=== PATIENT | male | born 1965 | race Caucasian/White ===

== ENCOUNTER 2022-07-28 01:36 | Observation (INO) | payer OTHER, SELFPAY ==
[2022-07-28] VITALS (14 sets, daily range): BP systolic 121–153; BP diastolic 71–94; PULSE 72–84; RESP 16–20; TEMP 36.6–37.6; O2SAT 96–98; BMI 28.6
--- NOTE | 2022-07-28 02:12 | CRLHL7_ITS ---
For Patients: As a result of the Cures Act, medical imaging exams and procedure reports are released immediately into your electronic medical record. You may view this report before your referring provider. If you have questions, please contact your health care provider. INDICATION: Shortness of breath, calf pain, chest pain. TECHNIQUE: Ultrasound venous duplex lower right extremity. Compression venous exam was performed using olivarez-scale, color Doppler, and spectral Doppler analysis. COMPARISON: None. FINDINGS: Deep veins: Sonographic imaging demonstrates the right common femoral, deep femoral, superficial femoral, and posterior tibial and the contralateral left common femoral veins to be fully compressible with normal color Doppler blood flow. There is nonocclusive thrombus in the popliteal vein becoming occlusive in 1 of the peroneal veins. Superficial veins: Greater saphenous vein is fully compressible. No popliteal cyst. IMPRESSION: Acute deep venous thrombosis. Nonocclusive thrombus in the popliteal vein with occlusive thrombus in 1 of the peroneal veins. Findings conveyed to Dr. Campbell at 4:30 a.m. on 07/28/2022. Dictated by Jasiel Blum MD @ 07/28/2022 4:33:14 AM (Electronically Signed)
--- NOTE | 2022-07-28 02:12 | CRLHL7_ITS ---
For Patients: As a result of the Century Cures Act, medical imaging exams and procedure reports are released immediately into your electronic medical record. You may view this report before your referring provider. If you have questions, please contact your health care provider. INDICATION: Left-sided chest pain, dyspnea COMPARISON: none TECHNIQUE: CT volumetric acquisition was performed of the thorax during intravenous infusion of 95 cc Isovue 370 nonionic intravenous contrast. Please note that all CT scans at this facility use dose modulation, iterative reconstruction, and/or weight-based dosing when appropriate to reduce radiation dose to as low as reasonably achievable. FINDINGS: Bilateral pulmonary emboli are present within the right middle lobe, right lower lobe and left lower lobe. Small left pleural effusion with adjacent atelectasis. Visualized thyroid normal. No adenopathy. The RV/LV ratio is 1.04. No reflux into the IVC. Upper abdomen normal. Ground-glass densities in the lingula. No fracture. IMPRESSION: Bilateral pulmonary emboli. Dr. Kathy Saleem discussed the findings with Dr. Campbell at 4:56am on 07/28/2022 Please note that all CT scans at this facility use dose modulation, iterative reconstruction, and/or weight-based dosing when appropriate to reduce radiation dose to as low as reasonably achievable. Dictated by Rai Guidry MD @ 07/29/2022 11:39:20 AM (Electronically Signed)
--- NOTE | 2022-07-28 02:14 | ED.GENADULT ---
HPI - General Adult General Time Seen by Provider: 02:15 Date Seen: 07/28/22 Chief complaint: Cough Stated complaint: Mild cough, pain lft side rib Time Seen by Provider: 07/28/22 02:06 Source: patient Mode of arrival: ambulatory Limitations: no limitations History of Present Illness HPI narrative: 57-year-old male who comes in with left-sided chest pain and shortness of breath. Patient started having a cough a couple weeks ago, today noted dyspnea with exertion and then this evening sharp left-sided chest pain worse with movement and breathing. Emergency department today but no other treatment. Worse with movement and breathing, no relieving factors. Pain is sharp, also some pain in left trapezius. No history of trauma Related Data Home Medications Medication Instructions Recorded Confirmed No Known Home Medications 07/28/22 07/28/22 Allergies Allergy/AdvReac Type Severity Reaction Status Date / Time No Known Drug Allergies Allergy Verified 07/28/22 03:32 Review of Systems Status of ROS: Reports: 10 or more systems reviewed and unremarkable except as noted in History and below PFSH PFSH Social History Smoking Status: Never smoker Do you use any of these nicotine containing products: None How often do you have a drink containing alcohol: monthly or less AUDIT-C Alcohol total score: 1 Non-prescribed substance use: denies use Exam Narrative: Exam Narrative: General: Well-developed and well-nourished, no acute distress Head: Atraumatic and normocephalic Eyes: Pupils are equal reactive, extraocular motions intact, conjunctiva clear ENT: External nose and ears are normal, posterior pharynx without erythema or exudate Neck: No midline cervical tenderness, full spontaneous range of motion the neck, trachea midline, no adenopathy Heart: Regular rate and rhythm no murmurs or thrills Lungs: Clear to auscultation bilaterally without wheezes or crackles, left lateral chest tenderness Abdomen: Soft, nontender, nondistended with active bowel sounds Musculoskeletal: No tenderness, deformity, or edema Neurologic: Awake, alert, and oriented x3, no gross focal neurologic deficits, cranial nerves intact as tested Psych: Mood and affect are appropriate Skin: No rashes Const: Vital Signs, click to edit/add: Vital Signs - 24 hr 07/28/22 01:52 Temperature 97.8 F Pulse Rate [Left P ulse Oximeter] 84 Respiratory Rate 16 Blood Pressure [Le ft Upper Arm] 150/94 H Pulse Oximetry 98 Oxygen Delivery Me thod Room Air Course Course Hospital Course: Patient seen and examined, are reviewed. Differential diagnosis not limited to hemothorax, pneumothorax, chest wall pain, pulmonary embolism, pneumonia. Patient presents with pleuritic left-sided pain along with cough, also had some right calf pain. On exam, vital is stable with no hypoxia. Appears uncomfortable. Toradol and normal saline ordered along with labs and CT PE protocol. Reevaluation(s) Reevaluation #1: Troponin is negative and BNP is normal. CT scan personally reviewed and interpreted by me demonstrates pulmonary infarction on the left with bilateral subsegmental pulmonary emboli, no evidence for right heart strain. Due to pulmonary infarction, will plan to admit the patient to [facility] for further evaluation and treatment. Time: 03:37 Reevaluation #2: Paged hospitalist, updated patient with diagnosis and plan. Time: 03:45 Reevaluation #3: Care discussed with about hospitalist who recommends oral anticoagulation and observation Time: 03:55 Vital Signs Vital signs: Initial Vital Signs Temperature 97.8 F 07/28/22 01:52 Temperature Source Temporal Artery Scan 07/28/22 01:52 Pulse Rate 84 07/28/22 01:52 Pulse Rhythm 07/28/22 01:52 Respiratory Rate 16 07/28/22 01:52 Blood Pressure 150/94 H 07/28/22 01:52 Blood Pressure Mean 112 07/28/22 01:52 Blood Pressure Position Sitting 07/28/22 01:52 Pulse Oximetry 98 07/28/22 01:52 Oxygen Delivery Method 07/28/22 01:52 Vital Signs Temperature 97.8 F 07/28/22 01:52 Pulse Rate 84 07/28/22 01:52 Respiratory Rate 16 07/28/22 01:52 Blood Pressure 150/94 H 07/28/22 01:52 Pulse Oximetry 98 07/28/22 01:52 Oxygen Delivery Method 07/28/22 01:52 Temperature 97.8 F 07/28/22 01:52 Pulse Rate 84 07/28/22 01:52 Respiratory Rate 16 07/28/22 01:52 Blood Pressure 150/94 H 07/28/22 01:52 Pulse Oximetry 98 07/28/22 01:52 Oxygen Delivery Method 07/28/22 01:52 Medical Decision Making Medical Records Medical records reviewed: Yes I reviewed the patient's medical records Lab Data Lab results reviewed: Yes I reviewed the patient's lab results Labs: Lab Results 07/28/22 07/28/22 07/28/22 Range/Units 02:12 02:24 02:24 WBC 10.60 (4.50-11.00) K/uL RBC 4.94 (4.30-5.90) m/uL Hgb 14.6 (13.5-17.5) gm/dL Hct 43.8 (37.0-53.0) % MCV 89 (80-100) fL MCH 30 (26-34) pg MCHC 33 (32-36) gm/dL RDW Coeff of Sven 12.3 (11.5-15.5) % Plt Count 248 (140-440) K/uL Neut % (Auto) 75.3 H (42.0-72.0) % Lymph % (Auto) 14.1 L (20-44) % [place] % (Auto) 9.1 (0.0-11.0) % Eos % (Auto) 0.8 (0.0-7.0) % Baso % (Auto) 0.3 (0.0-3.0) % Neut # (Auto) 8.00 H (1.7-7.0) K/uL Lymph # (Auto) 1.50 (0.90-2.90) K/uL [place] # (Auto) 1.00 H (0.00-0.90) K/UL Eos # (Auto) 0.09 (0.00-0.50) K/uL Baso # (Auto) 0.03 (0.00-0.30) K/uL Abs Immat Gran (auto) 0.04 (0.00-0.30) K/uL Sodium 136 (135-149) mmol/L Potassium 4.0 (3.6-5.1) mmol/L Chloride 100 (96-114) mmol/L Carbon Dioxide 27 (20-32) mmol/L BUN 19 (7-30) mg/dL Creatinine 1.3 (0.5-1.5) mg/dL Estimated Creat Clear 68.38 Estimated GFR 65 ml/min Glucose 121 H (60-115) mg/dL Calcium 9.7 (8.4-10.6) mg/dL NT-Pro-B Natriuret Pep 47 (0-125) PG/mL POC Troponin I 0.00 L (0.01-0.04) ng/ml Imaging Data CT scan - chest: Attestation: I have reviewed the pertinent imaging results. My impression: Bilateral subsegmental pulmonary embolism with pulmonary infarction on the left Venous US: Attestation: I have reviewed the pertinent imaging results. My impression: Occlusive and nonocclusive thrombus in the popliteal and peroneal Critical Care Time Critical Care Time Critical Care Time: Yes Attestation: The patient required my highest level preparedness to intervene emergently and I personally spent this critical care time directly and personally managing the patient. This critical care time included: Obtaining a history; Examining the patient; Pulse oximetry; Ordering and reviewing of studies; Arranging urgent treatment with development of a management plan; Evaluation of patients response to treatment; Frequent reassessment discussions with other providers. This critical care time was performed to assess and manage the high probability of imminent life-threatening deterioration that could result in multiorgan failure. It was exclusive of separate billable procedures and treating other patients and teaching time. Total Critical Care Time in Minutes: 80 Discharge Plan Discharge Clinical Impression: Pulmonary embolism and infarction, Deep vein thrombosis (DVT) of right lower extremity Patient Disposition: Admitted As Inpatient Condition: Stable
--- OUTSIDE RECORDS SUMMARY | 2022-07-28 02:27 | XMS_ITS | Clinical Summary ---
:1965 Author Organization [employer] [facility] [place] [address] Care Team Providers Name Role Phone Johana Busby Primary Care Provider Allergies No known active allergies Medications No known medications Active Problems Problem Noted Date Skin cancer 07/02/2022 Overview: 06/30/22: Right nasal ala; Basal cell car cinoma - needs Mohs [place]-Schlatter's disease of both knees 06/09/2022 Routine adult health maintenance 10/31/2017 Overview: Colonoscopy 10/2017 normal , repeat in 10 years Osteoarthritis of both hands 09/23/2016 Elevated serum creatinine 09/23/2016 High serum potassium level 09/23/2016 Mixed hyperlipidemia 06/13/2009 Encounters Date Type Specialty Care Team Description 07/02/2022 Telephone Wandy Luque Results MD Candy 06/30/2022 Office Visit Wandy Luque Derm Problem MD Candy 06/30/2022 Travel 06/09/2022 Office Visit Naeem Lee, Knee Inju ry (right- 2 weeks DO ago slowly impr oving.) 06/09/2022 Travel 05/31/2022 Hospital Encounter Johana Busby Mixed hy perlipidemia ROSEANN Weiner 05/31/2022 Travel 05/06/2022 Office Visit Johana Busby Physical (Has a spot on ROSEANN Weiner nose that bleed s when he wipes it with a towel and it hurts all th e time) 05/06/2022 Travel from Last 3 Months Immunizations Name Administration Dates Next Due AMB INFLUENZA, IIV4 (AGE=>6MOS) MDV 07/05/2017 (Flu Clinic Only) COVID-19 vaccine (Moderna 09/15/2021, 12/11/2020, 11/13/2020 100mcg/0.5mL) PF, MDV Hepatitis B, Unspecified 10/04/1993, 06/23/1993, 04/26/1993 Influenza A (H1N1), Inactivated 08/21/2009 Influenza, IIV3 (Age >=3 years) 07/14/2015, 06/17/2013, 06/18, 07/17/2010 Influenza, IIV4 08/08/2021, 07/26/2019, 07/13/2018, 07/29/2016, 07/18/2014, 07/23/2013 Influenza, IIV4 (=>6mos) MDV 07/05/2020, 07/26/2016, 015 MMR 04/23/1993, 05/03/1985 Meningococcal Vaccine 05/03/1992, 05/03/1985 Rabies Vaccine 06/23/1993, 05/03/1993, 04/26/1993 Td (Age >=7 Years) 10/17/2002 Tdap 05/06/2022, 06/07/2012 Zoster (Shingrix-RZV, recombinant) 03/21/2019, 01/24/2019 Family History Medical History Relation Name Comments Good Health Brother 2 Good Health Father has rosacea, Ray nauds Other Maternal Aunt [place]-Candido disease Diabetes Maternal Grandfather Heart Disease Maternal Grandfather Heart Disease Maternal Grandmother CHF, a t 89 Arthritis Mother rheumatoid Cancer Paternal Grandfather Cancer Paternal Grandmother bone Good Health Sister 3 Relation Name Status Comments Brother 1 Alive Brother 2 Father Alive Maternal Aunt Maternal Grandfather Maternal Grandmother Mother Alive Paternal Grandfather Paternal Grandmother Sister 1 Alive Sister 2 Alive Sister 3 Social History Tobacco Use Types Packs/Day Years Used Date Never Smoker Smokeless Tobacco: Never Used Tobacco Cessation: Counseling Given: Yes Alcohol Use Standard Drinks/Week Comments Yes 0 (1 standard drink = 0.6 oz pure alcoho l) once a month Sex Assigned at Date Recorded Not on file COVID-19 Exposure Response Date Recorded In the last 10 days, have you been in contact with No / Unsu re 06/30/2022 8:02 AM CDT someone who was confirmed or suspected to have Coronavirus/COVID-19? 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 Respiratory Rate - - Oxygen Saturation 97% 06/09/2022 7:29 AM CDT Inhaled Oxygen Concentration - - Weight 93.7 kg (206 lb 9.6 oz) 06/09/2022 7:29 AM CDT Height 179.8 cm (5' 10.79) 05/06/2022 1:33 PM CDT Body Mass Index 28.99 05/06/2022 1:33 PM CDT Plan of Treatment Upcoming Encounters Date Type Specialty Care Team Description 09/16/2022 Office Visit Ever Agee MD [address] [place], [place] [address] (Wo rk) Health Maintenance Due Date Last Done Comments COVID-19 vaccine series (5 - 04/19/2022 02/22/2022, 021, Booster for Moderna series) 12/11/2020, Addition al history exists Influenza for age 50-64 06/17/2022 08/08/2021, 07/05/2020, 07/26/2019, Additional history exists BMI (ht and wt on same day) for 05/06/2023 05/06/2022, 04/17, age 18+ 01/24/2019, Additional history exists Depression screening for age 12+ 05/06/2023 05/06/2022, 07/2019, 09/20/2017, Additional history exists Lipids for age 45-75 05/06/2027 05/06/2022, 09/20/2017, 04/06/2016, Additional history exists Colonoscopy through age 75 10/31/2027 10/31/2017, 8, 10/31/2017 (Completed outside of [facility]) Tetanus booster 05/06/2032 05/06/2022, 06/07/2012, 10/17/2002 Zoster (shingles) series for age Completed 03/21/2019, 07/2019 50+ Hepatitis C screening for age Completed 05/06/2022 18-79 Tdap Completed 05/06/2022, 06/07/2012 Procedures Procedure Name Priority Date/Time Associated Diagnosis Comme nts PATH TISSUE EXAM Routine 06/30/2022 8:40 AM Neoplasm of uncert ain Results for this CDT behavior procedure are i n the results section. CT CARDIAC CALCIUM Routine 05/31/2022 8:04 AM Mixed hyperlipid emia Results for this SCORE ONLY WO CDT procedure are in SINGLE READ the results section. COMP METABOLIC Routine 05/06/2022 2:18 PM Hyperlipidemia, Resu lts for this PANEL CDT unspecified procedure are i n hyperlipidemia type the resu lts section. HEMOGLOBIN A1C Routine 05/06/2022 2:18 PM Screening for diabet es Results for this SCREENING CDT mellitus (DM) procedure are in the results section. ANTI HCV Routine 05/06/2022 2:18 PM Need for hepatitis C R esults for this CDT screening test procedure are in the results section. LIPID PANEL W Routine 05/06/2022 2:18 PM Hyperlipidemia, Resul ts for this REFLEX MEASURED LDL CDT unspecified procedur e are in hyperlipidemia type the resu lts section. from Last 3 Months Results PATH TISSUE EXAM (06/30/2022 8:40 AM CDT) Component Value Ref Test Analysis Performed At [facility] gist Range Method Time Signature Case Report Pathology Report ?Case: [id number] ? 07/02/2022 [facility] Authorizing Provider: ??Jovany freedman, Wandy Gupta, ??Collected: ? 06/30/2022 0840 ? 8:45 AM CDT LABORAT ORY-CE ? MD ? NTRAL Ordering Location: ? [facility] ? Received: ?06/30/2022 0857 ? LABOR ATORY ? Clinic ? Pathologist: ? Maria Esther Delatorre MD ? Specimen: ?Nose, right a la ? Final A) SKIN, RIGHT NASAL ALA, BIOPSY: 2021 [facility] Electronically Diagnosis 1. Basal cell carcinoma, nodular type: 8 :45 AM CDT LABORATORY-CE signed by ?? a. Perineural invasion: Absent NTRAL Maria Esther Delatorre ?? b. Margins: Positive LABOR CARLOS Wiley MD on 07/02/2022 at 8:45 AM Clinical Rule out 07/02/2022 [facility] Information atypia 8:45 AM CDT LABORATORY-CE NTRAL LABORATORY Gross A) Received in formalin, lab eled with the patient's name and right ala, is a 0.4 x 0.3 cm skin biopsy. There is a 0.3 x 0.2 x 0.1 cm raised davis lesion. The specimen is inked green, bisected and entirely submitted in one cassette. 07/02/2022 [facility] Description 8:45 AM CDT LABORATORY-CE Dk Sousa 06/30/2022 4:02 PM NTRAL LABORATORY Microscopic The final 07/02/2022 [facility] Description diagnosis is 8:45 AM CDT LABORATORY-CE based on NTRAL microscopic LABORATORY examination of appropriate sections of all specimens. Additional 07/02/2022 [facility] Information Interpreted at [facility], Central Laboratory - [address], [place] [address] 8:45 AM CDT LABORATORY-CE NTRAL LABORATORY Specimen Anatomical Collection Method Collection Time Receive d Time (Source) Location / / Volume Laterality Other SPECIMEN FROM NOSE Non-Blood / 06/30/2022 8:40 AM 8:57 / Unknown Unknown CDT AM CDT Wandy Luque MD PATHOLOGY/CYTOLOGY Performing Organization Address City/State/ZIP Code Phon e Number [facility] [address] [place] [address] LABORATORY-CENTRAL [address] CARDIAC CALCIUM SCORE ONLY WO SINGLE READ (05/31/2022 8:04 AM CDT) Anatomical Region Laterality Modality Computed Tomography Specimen (Source) Anatomical Location Collection Method / Collectio n Time Received Time / Laterality Volume Impressions 05/31/2022 12:04 PM CDT ??The coronary artery calcium score of 0.0 is consistent with no identifiable calcification. ??Recomme nd appropriate risk management. ?? Please note that all CT scans at this [facility] use dose modulation, iterative reconstruction and/or weight-b ased dosing when appropriate to reduce radiation dose to as low as reaso nably achievable. ?? MONET CALVILLO M.D. [email or web address] NERIS/kely Narrative 05/31/2022 12:04 PM CDT For Patients: As a result of the Cures Act, medical imaging exams and procedure reports are released immediately into your electronic medical record. ??You may view this repo rt before your referring provider. ?? If you have questions, please contact [facility] care provider. CT CARDIAC CALCIUM SCORING, 05/31/2022 PATIENT HISTORY: ??Mixed hyperlipidemia. ?? REPORT: ??High-resolution, ECG-synchroni zed computed tomography of the heart with attention to the coronary art eries was performed using Siemens HeartView CT. Coronary calcification lauren lyzed using Siemens calcium scoring software. These are the results of the evaluation: Artery Number of Lesions Volume Equiv. M ass Calcium Score LM 0 0.0 0.00 0.0 LAD 0 0.0 0.00 0.0 CX 0 0.0 0.00 0.0 RCA 0 0.0 0.00 0.0 TOTAL 0 0.0 0.00 0.0 Threshold: ??130HU ??(102.7 mg/cm3 CaHA) *) Calibration factor: 0.790 mg/(HUcm3) CaHA The Computed Tomography of the coronary arteries detected no coronary calcifications. ??According to the curre nt state of knowledge (O'Maria E, Circulation 2000; 102:126) a coronary at herosclerosis including unstable plaque is very unlikely when no calcific ations are present. ??A significant luminal obstructive disease is also very unlikely. ??Most patients without coronary calcifications have angiographi tima normal coronary arteries. ?? There is only a low risk of a cardiac ev ent in the next 2 to 5 years. No Identifiable Calcification Minimal Identifiable Calci fication Mild Calcification Moderate Calcification Significant Calci fication 0 1-10 11-100 101-400 401 and above (Following [facility] Clin Proc. 1999;74(3):24 3-252) COMMENT: ??Heart size normal. ??Visible lung fox are clear. ?? Johana WHITFIELD CT HEMOGLOBIN A1C SCREENING (05/06/2022 2:18 PM CDT) athologist Signature HEMOGLOBIN A1C 5.3 <=6.4 % 05/06/2022 [facility] SCREENING 9:59 PM CDT LABORATORY-[facility] LABORATORY Specimen Anatomical Collection Method / Collection Time Recei yadiel Time (Source) Location / Volume Laterality Blood BLOOD SPECIMEN / Venipuncture / 05/06/2022 2:18 2021 2:19 Unknown Unknown PM CDT PM CDT Narrative [facility] LABORATORY-CENTRAL LABORAT ORY - 05/06/2022 9:59 PM CDT ? (<5.7%) ?Normal ? (5.7% to 6.4%) ? Indicates pr ediabetes ? (>=6.5%) ? Confirms diabetes Falsely low levels may be seen with: Recent Transfusion, Recent Significant B lood Loss, Hemolytic Diseases, or Falsely elevated levels may be seen with : Untreated Anemias, Splenectomy Johana WHITFIELD CHEMISTRY Performing Organization Address City/State/ZIP Code Phon e Number [facility] [address] [place] [address] LABORATORY-CENTRAL 2000 LABORATORY (ABNORMAL) LIPID PANEL W REFLEX MEASURED LDL (05/06/2022 2:18 PM CDT) [facility] Method Time Signature CHOLESTEROL,TOTAL 270 (H) 100 - 199 05/07/2022 [facility] mg/dL 1:56 AM CDT LABORATORY-[facility] TRAL LABORATORY TRIGLYCERIDES 112 <150 05/07/2022 [facility] mg/dL 1:56 AM CDT LABORATORY-[facility] TRAL LABORATORY HDL CHOLESTEROL 43 >40 mg/dL 05/07/2022 [facility] 1:56 AM CDT LABORATORY-[facility] TRAL LABORATORY NON-HDL 227 (H) <145 05/07/2022 [facility] CHOLE[facility]OL mg/dl 1:56 AM CDT LABORATORY-[facility] TRAL LABORATORY CHOL/HDL RATIO 6.28 (H) <4.50 05/07/2022 [facility] 1:56 AM CDT LABORATORY-[facility] TRAL LABORATORY LDL CHOLESTEROL 205 (H) <=130 05/07/2022 [facility] mg/dL 1:56 AM CDT LABORATORY-[facility] TRAL LABORATORY VLDL CHOLESTEROL 22 <=30 05/07/2022 [facility] mg/dL 1:56 AM CDT LABORATORY-[facility] TRAL LABORATORY PROVIDER ORDERED RANDOM 05/07/2022 [facility] STATUS 1:56 AM CDT LABORATORY-[facility] TRAL LABORATORY Specimen Anatomical Collection Method / Collection Time Recei yadiel Time (Source) Location / Volume Laterality Blood BLOOD SPECIMEN / Venipuncture / 05/06/2022 2:18 2021 2:19 Unknown Unknown PM CDT PM CDT Johana WHITFIELD CHEMISTRY Performing Organization Address [facility] Phon e Number [facility] [address] [place] [address] LABORATORY-CENTRAL 1999 LABORATORY ANTI HCV (05/06/2022 2:18 PM CDT) [facility] Method Time Signature HEPATITIS C Non-Reacti Non-Reacti 05/07/2022 [facility] ANTIBODY ve ve 3:45 AM CDT LABORATORY-[facility] TRAL LABORATORY Comment: Antibodies to HCV not detected; does not exclude the possibility of exposure to HCV. Specimen Anatomical Collection Method / Collection Time Recei yadiel Time (Source) Location / Volume Laterality Blood BLOOD SPECIMEN / Venipuncture / 05/06/2022 2:18 2021 2:19 Unknown Unknown PM CDT PM CDT Johana WHITFIELD SEND OUTS Performing Organization Address [facility] Phon e Number [facility] [address] [place] [address] LABORATORY-CENTRAL 1999 LABORATORY (ABNORMAL) COMP METABOLIC PANEL (05/06/2022 2:18 PM CDT) [facility] Method Time Signature SODIUM 139 135 - 145 05/07/2022 [facility] mmol/L 1:56 AM CDT LABORATORY-[facility] TRAL LABORATORY POTASSIUM 4.4 3.5 - 5.0 05/07/2022 [facility] mmol/L 1:56 AM CDT LABORATORY-[facility] TRAL LABORATORY CHLORIDE 101 98 - 110 05/07/2022 [facility] mmol/L 1:56 AM CDT LABORATORY-[facility] TRAL LABORATORY CO2,TOTAL 25 21 - 31 05/07/2022 [facility] mmol/L 1:56 AM CDT LABORATORY-[facility] TRAL LABORATORY ANION GAP 13 5 - 18 05/07/2022 [facility] 1:56 AM CDT LABORATORY-[facility] TRAL LABORATORY GLUCOSE 82 65 - 100 05/07/2022 [facility] mg/dL 1:56 AM CDT LABORATORY-[facility] TRAL LABORATORY CALCIUM 9.9 8.5 - 05/07/2022 [facility] 10.5 1:56 AM CDT LABORATORY-[facility] mg/dL TRAL LABORATORY BUN 15 8 - 25 05/07/2022 [facility] mg/dL 1:56 AM CDT LABORATORY-[facility] TRAL LABORATORY CREATININE 1.54 (H) 0.72 - 05/07/2022 [facility] 1.25 1:56 AM CDT LABORATORY-[facility] mg/dL TRAL LABORATORY BUN/CREAT RATIO 10 10 - 20 05/07/2022 [facility] 1:56 AM CDT LABORATORY-[facility] TRAL LABORATORY ALBUMIN 4.8 3.5 - 5.2 05/07/2022 [facility] g/dL 1:56 AM CDT LABORATORY-[facility] TRAL LABORATORY PROTEIN,TOTAL 7.2 6.0 - 8.0 05/07/2022 [facility] g/dL 1:56 AM CDT LABORATORY-[facility] TRAL LABORATORY GLOBULIN 2.4 2.0 - 3.7 05/07/2022 [facility] g/dL 1:56 AM CDT LABORATORY-[facility] TRAL LABORATORY A/G RATIO 2.0 1.0 - 2.0 05/07/2022 [facility] 1:56 AM CDT LABORATORY-[facility] TRAL LABORATORY BILIRUBIN,TOTAL 1.2 0.2 - 1.2 05/07/2022 [facility] mg/dL 1:56 AM CDT LABORATORY-[facility] TRAL LABORATORY ALK PHOSPHATASE 64 50 - 136 05/07/2022 [facility] IU/L 1:56 AM CDT LABORATORY-[facility] TRAL LABORATORY ALT (SGPT) 36 8 - 45 05/07/2022 [facility] IU/L 1:56 AM CDT LABORATORY-[facility] TRAL LABORATORY AST (SGOT) 28 2 - 40 05/07/2022 [facility] IU/L 1:56 AM CDT LABORATORY-[facility] TRAL LABORATORY eGFR 53 (L) >90 05/07/2022 [facility] mL/min/1. 1:56 AM CDT LABORATORY-ALMA 73m2 TRAL LABORATORY Comment: As of 2021, eGFR is calcu lated by the CKD-EPI creatinine equation without race adjustment. eGFR can be inf luenced by muscle mass, exercise, and diet. The reported eGFR is an estimation only and is only applicable if the renal function is stable. Specimen Anatomical Collection Method / Collection Time Recei yadiel Time (Source) Location / Volume Laterality Blood BLOOD SPECIMEN / Venipuncture / 05/06/2022 2:18 2021 2:19 Unknown Unknown PM CDT PM CDT Johana WHITFIELD CHEMISTRY Performing Organization Address City/State/ZIP Code Phon e Number [facility] [address] [place] [address] LABORATORY-CENTRAL 2000 LABORATORY from Last 3 Months Insurance Payer Benefit Plan / Subscriber ID Effective Dates Phone Addre ss Type Group MEDICA MEDICA CHOICE [id number] 2021-Present [address] [address] [place] [address] (Home) [place] [phone] [place], [place] (Work) [address] Care Teams Vascular Technologist Relationship Specialty Start Date End Date Johana Busby PA PCP - General 09/02/07 [address] [place], [place] [id number]
[2022-07-28] MEDS: KETOROLAC 15 MG/ML inj IVP (02:35)
[2022-07-28] MEDS: 0.9 % SODIUM CHLORIDE 1000 ml 1,000 ML IV (02:35)
[2022-07-28 02:43] LABS: Basophils Absolute Auto 0.03 K/uL (0.00-0.30); Basophils Percent Auto 0.3 % (0.0-3.0); Eosinophils Absolute Auto 0.09 K/uL (0.00-0.50); Eosinophils Percent Auto 0.8 % (0.0-7.0); Hematocrit 43.8 % (37.0-53.0); Hemoglobin* 14.6 gm/dL (13.5-17.5); Immature Granulocytes Abs Auto 0.04 K/uL (0.00-0.30); Lymphocytes Percent Auto 14.1 % (20-44); Mean Corpuscular HGB Conc 33 gm/dL (32-36); Mean Corpuscular Hemoglobin 30 pg (26-34); Mean Corpuscular Volume 89 fL (80-100); Monocytes Percent Auto 9.1 % (0.0-11.0); Neutrophils Percent Auto 75.3 % (42.0-72.0); Platelet Count* 248 K/uL (140-440); RDW Coefficient of Variation % 12.3 % (11.5-15.5); Red Blood Count 4.94 m/uL (4.30-5.90)
[2022-07-28 02:44] LABS: Slide Review Reflex No
[2022-07-28 02:55] LABS: Chloride* 100 mmol/L (96-114); Sodium* 136 mmol/L (135-149)
[2022-07-28 02:58] LABS: Blood Urea Nitrogen* 19 mg/dL (7-30); Carbon Dioxide* 27 mmol/L (20-32); Creatinine* 1.3 mg/dL (0.5-1.5); Est. Creatinine Clearance* 68.38; Estimated Glomerular Filt Rate 65 ml/min
[2022-07-28 02:59] LABS: Calcium* 9.7 mg/dL (8.4-10.6); Glucose* 121 mg/dL (60-115)
[2022-07-28 03:08] LABS: NT Pro B Type NatriureticPept* 47 PG/mL (0-125)
[2022-07-28 04:00] LABS: Prothrombin Time 13.6 Seconds
[2022-07-28 04:01] LABS: Partial Thromboplastin Time* 32 Seconds (23-33)
[2022-07-28] MEDS: RIVAROXABAN 10 MG TABLET 15 MG PO ×3 (04:13→20:24)
[2022-07-28 04:33] LABS: PCR FLU A Negative PCR FLU A (Negative); PCR FLU B Negative PCR FLU B (Negative)
[2022-07-28 04:36] LABS: SARS PCR* Negative SARS-CoV-2 (Negative)
--- NOTE | 2022-07-28 05:02 | PM.IMCN1 ---
Date of Consult Consult date: 07/28/22 Primary Care Provider: ROSEANN Delong Consult Narrative Narrative: Mahesh Boone is a 57 year old male [facility] Social History Highest level of school completed/degree received: Doctoral degree Smoking Status: Never smoker Do you use any of these nicotine containing products: None How often do you have a drink containing alcohol: monthly or less AUDIT-C Alcohol total score: 1 Non-prescribed substance use: denies use Caffeine: No service: Yes Meds Home Medications and Allergies Home Medications Medication Instructions Recorded Confirmed Type No Known Home Medications 07/28/22 07/28/22 History Allergies Allergy/AdvReac Type Severity Reaction Status Date / Time No Known Drug Allergies Allergy Verified 07/28/22 03:32 Exam Const: Vital Signs, click to edit/add: Vital Signs - 24 hr 07/28/22 01:52 07/28/22 04:16 07/28/22 03:00 Temperature 97.8 F Pulse Rate [Left P ulse Oximeter] 84 76 Respiratory Rate 16 16 Blood Pressure [Le ft Upper Arm] 150/94 H 135/77 Pulse Oximetry 98 98 97 Oxygen Delivery Me thod Room Air Room Air 07/28/22 04:00 07/28/22 03:45 07/28/22 04:30 Temperature Pulse Rate [Left P ulse Oximeter] 74 78 74 Respiratory Rate 16 16 16 Blood Pressure [Le ft Upper Arm] 125/80 122/89 129/83 Pulse Oximetry 98 98 97 Oxygen Delivery Me thod Room Air Room Air Room Air Labs Labs: Short CBC 07/28/22 Range/Units 02:24 WBC 10.60 (4.50-11.00) K/uL Hgb 14.6 (13.5-17.5) gm/dL Hct 43.8 (37.0-53.0) % Plt Count 248 (140-440) K/uL BMP 07/28/22 02:24 Sodium 136 Potassium 4.0 Chloride 100 Carbon Dioxide 27 BUN 19 Creatinine 1.3 Glucose 121 H Calcium 9.7 Assessment and Plan Assessment and plan (1) Pulmonary embolism and infarction: Status: Acute Plan [facility] Hospitalist CONSULTATION NOTE: Reason for consult: Pulmonary embolism HPI: Patient is a pleasant 57-year-old male who presents with pleuritic chest pain and shortness of breath that is been going on for the last several days. He also notes that he had some right leg pain 2 days ago which has gotten better. He did notice a bit of swelling of his leg as well. I did not have any headache or lightheadedness. He denies abdominal pain, nausea, vomiting, or diarrhea. He has not had any associated fevers or chills. In the ER he had his CT scan showing pulmonary embolism as well as a DVT of his right lower extremity. He is started on rivaroxaban and placed in observation. Patient is a non-smoker. He drinks alcohol around once a month. Patient is full code Assessment and Plan: 1. Pulmonary embolism [Patient is a pleasant 57-year-old male with pulmonary embolism. His pulmonary embolism seems to be unprovoked as he does not have any recent inciting events. Hypercoagulable work-up could be considered, though he has family history of clotting disorder and has never had a prior blood clot. He could just be treated with anticoagulation and if he has a second thromboembolic event hypercoagulable work-up could be initiated at that point. Regardless the need to be on anticoagulation for at least 3 months if not 6 months and trialed off at that point. Patient does not have any home medications to continue. Patient is a full code. Thank you for including Krishna Merino in the patients care. This service is available for further assistance as requested by your care team by calling [phone].
--- NOTE | 2022-07-28 06:40 | PC.NURSE ---
End of Shift Note: Patient was admitted around 5 am. He ambulated up to the unit from the ER. No shortness of breath noted. His arrived shortly after his arrival to the unit. His admission was done all questions have been answered. Left room to grab a couple of forms and patient was settled in and had the lights off in his room. Left him to sleep will get the few items left to complete when he awakens as he was up most of the night. He drove himself to the ER and then texted his
[2022-07-28 08:33] LABS: ABG PCO2 35 mmHG (35-45); Base Excess ABG 2.4 mmol/L (-3.0-3.0); HCO3 ABG 26 mmol/L (21-28); Oxygen Saturation ABG 97 % (92-100); PO2 ABG 77.5 mmHG (80-105); TCO2 ABG 22 mmol/l (21-30); pH ABG 7.48 (7.35-7.45)
--- NOTE | 2022-07-28 09:06 | PM.IMHP1 ---
Hospitalist- H&P: HPI History of Present Illness Date Seen: 07/28/22 Chief complaint: Mild cough, pain lft side rib Narrative: Mahesh Boone is a 57 year old male who presented to the emergency room yesterday for concerns of blood clots. He notes that about 2 weeks ago, he began having intermittent cough, no hemoptysis. Noted calf pain on the right approximately 5 days ago. He started taking magnesium for cramping which was ineffective. Over the past 48 hours, noted L-sided chest pain, worsening dyspnea while active (biking, working around the house), and intermittent left-sided chest pain laterally with deep breaths. Given constellation of findings, he presented to the emergency room, worried about a blood clot. He had never had a blood clot previously, no recent travel, no known malignancy. No recent COVID infection. No new supplements (besides magnesium, see below). He is unaware of any family history of blood clots. ER course and findings: - right-sided DVT - bilateral pulmonary emboli, noted in the segmental and subsegmental left upper lobe and left lower lobe, distal right main pulmonary artery and extension into the set mental and subsegmental right lower lobe pulmonary arteries with concern for right heart strain. There is also patchy opacity in the lingula noted. - started on Xarelto and admitted to the hospital for monitoring - no acute/concerning findings on EKG, negative point of care troponin Mahesh is generally healthy, takes no daily prescription medications. Had Mohs surgery five days ago (the day after he has noted having calf pain) for basal cell carcinoma on his nose. Recently diagnosed with high cholesterol, but had a reassuring coronary artery calcium score. History of mild renal insufficiency (Cr 1.58), seeing Nephrology in September. He is up-to-date on colon cancer screening (normal colonoscopy at age 52), has deferred routine PSAs. Has mild symptoms of BPH. Patient is a PhD psychologist, works locally. Lives with Kathy (medical decision maker if needed) and 2 teenage sons. He has received 5 COVID vaccines. Requests Full Code status. Review of Systems Status of ROS: Reports: 10 or more systems reviewed and unremarkable except as noted in History and below Narrative: Patient has noted difficulty sleeping over the past few evenings; he denies PND orthopnea, just has a difficult time falling asleep. PFSH PFSH Medical History (Updated 07/28/22 @ 12:25 by Olamide Ayala MD) Basal cell carcinoma Hyperlipidemia Surgical History (Updated 07/28/22 @ 09:27 by Olamide Ayala MD) H/O hernia repair Social History Highest level of school completed/degree received: Doctoral degree Smoking Status: Never smoker Do you use any of these nicotine containing products: None How often do you have a drink containing alcohol: monthly or less AUDIT-C Alcohol total score: 1 Non-prescribed substance use: denies use Caffeine: No service: Yes Meds Home Medications and Allergies Home Medications Medication Instructions Recorded Confirmed Type calcium carbonate 500 mg calcium 500 mg PO DAILY 07/28/22 07/28/22 History (1,250 mg) tablet (Oyster Shell Calcium) cholecalciferol (vitamin D3) 25 1,000 unit PO DAILY 07/28/22 07/28/22 History mcg (1,000 unit) tablet (Vitamin D3) multivitamin (Daily Multi-Vitamin 1 tab PO DAILY 07/28/22 07/28/22 History tablet) Allergies Allergy/AdvReac Type Severity Reaction Status Date / Time No Known Drug Allergies Allergy Verified 07/28/22 03:32 Exam Narrative: Exam Narrative: GEN: Alert and oriented, speaking in full sentences, resting comfortably in bed HEENT: Normal external ears, EOMIs bilaterally, no scleral icterus CV: RRR, No concerning murmurs, rubs, or gallops R: LCTA bilaterally without concerning wheezing. Mild rhonchi left base, air movement adequate Ext: wwp, no concerning edema Skin: Healing skin lesion on nose from recent Mohs surgery, no concerning skin lesions or rashes on exposed skin Neuro: Nonfocal Psych: Appropriate Const: Vital Signs, click to edit/add: Vital Signs - 24 hr 07/28/22 01:52 07/28/22 04:16 07/28/22 03:00 Temperature 97.8 F Pulse Rate [Left P ulse Oximeter] 84 76 Pulse Rate [Right Radial] Respiratory Rate 16 16 Blood Pressure [Le ft Upper Arm] 150/94 H 135/77 Blood Pressure [Ri ght Arm] Pulse Oximetry 98 98 97 Oxygen Delivery Me thod Room Air Room Air 07/28/22 04:00 07/28/22 03:45 07/28/22 04:30 Temperature Pulse Rate [Left P ulse Oximeter] 74 78 74 Pulse Rate [Right Radial] Respiratory Rate 16 16 16 Blood Pressure [Le ft Upper Arm] 125/80 122/89 129/83 Blood Pressure [Ri ght Arm] Pulse Oximetry 98 98 97 Oxygen Delivery Me thod Room Air Room Air Room Air 07/28/22 05:25 07/28/22 05:33 Temperature 98.6 F Pulse Rate [Left P ulse Oximeter] Pulse Rate [Right Radial] 72 Respiratory Rate 20 20 Blood Pressure [Le ft Upper Arm] Blood Pressure [Ri ght Arm] 153/87 H Pulse Oximetry 96 96 Oxygen Delivery Me thod Room Air Room Air Hospitalist - H&P: Result Labs Labs: Short CBC 07/28/22 Range/Units 02:24 WBC 10.60 (4.50-11.00) K/uL Hgb 14.6 (13.5-17.5) gm/dL Hct 43.8 (37.0-53.0) % Plt Count 248 (140-440) K/uL BMP 07/28/22 02:24 Sodium 136 Potassium 4.0 Chloride 100 Carbon Dioxide 27 BUN 19 Creatinine 1.3 Glucose 121 H Calcium 9.7 ECG Attestation: I personally reviewed and interpreted this ECG as follows: ECG interpretation date: 07/28/22 ECG interpretation time: 10:30 Interpretation: Normal sinus rhythm, normal PA interval, no concerning ST findings Assessment and Plan Assessment and plan (1) Pulmonary embolism and infarction: Problem comment: Started on Xarelto 07/28/22 Status: Acute Assessment and Plan: Continue Xarelto. TTE today to further assess right heart strain. Monitor over the next 24 hours with telemetry and nocturnal oximetry to ensure no hypoxia. Will need at least 6 months of anticoagulation, can discuss hematology follow-up with PCP as an outpatient. (2) Deep vein thrombosis (DVT) of right lower extremity: Status: Acute Plan - per above - Xarelto for prophylaxis - likely home with tomorrow
[2022-07-28 11:13] LABS: Troponin I* < 0.01 ng/mL (0.01-0.04)
--- NOTE | 2022-07-28 22:26 | PC.NURSE ---
End of Shift: Patient pleasant and cooperative. O2 sats greater than 90% on room air. Tele showing NSR. Patient had one brief episode of pain but has denied pain the reminder of the shift. Up independently in room. Tolerating regular diet with no nausea.
[2022-07-29 00:30] VITALS: BP 123/69; PULSE 73; RESP 16; TEMP 37.4; O2SAT 95
[2022-07-29 05:05] VITALS: BP 124/82; PULSE 82; RESP 16; TEMP 37.1; O2SAT 94
[2022-07-29 05:18] VITALS: PULSE 62
--- NOTE | 2022-07-29 05:30 | PC.NURSE ---
Shift note: The pt has been very pleasant and cooperative. Denied chest pain and reported mild short of breath with exertion. The pt has been in RA with Spo2 in the 90s. He denied calf pain and other distress throughout the shift.
[2022-07-29 07:24] LABS: Basophils Absolute Auto 0.05 K/uL (0.00-0.30); Basophils Percent Auto 0.5 % (0.0-3.0); Eosinophils Absolute Auto 0.12 K/uL (0.00-0.50); Eosinophils Percent Auto 1.2 % (0.0-7.0); Hematocrit 42.4 % (37.0-53.0); Hemoglobin* 14.1 gm/dL (13.5-17.5); Immature Granulocytes Abs Auto 0.04 K/uL (0.00-0.30); Lymphocytes Percent Auto 14.3 % (20-44); Mean Corpuscular HGB Conc 33 gm/dL (32-36); Mean Corpuscular Hemoglobin 30 pg (26-34); Mean Corpuscular Volume 90 fL (80-100); Monocytes Percent Auto 11.3 % (0.0-11.0); Neutrophils Percent Auto 72.3 % (42.0-72.0); Platelet Count* 239 K/uL (140-440); RDW Coefficient of Variation % 12.3 % (11.5-15.5); Red Blood Count 4.74 m/uL (4.30-5.90); White Blood Count* 10.19 K/uL (4.50-11.00)
[2022-07-29 07:30] VITALS: BP 144/89; PULSE 68; PULSE 70; RESP 16; TEMP 36.8; O2SAT 94
[2022-07-29 07:31] LABS: Slide Review Reflex No
[2022-07-29 07:32] LABS: Albumin* 4.3 g/dL (3.3-5.0); Chloride* 103 mmol/L (96-114)
[2022-07-29 07:33] LABS: Potassium* 5.2 mmol/L (3.6-5.1); Sodium* 136 mmol/L (135-149)
[2022-07-29 07:35] LABS: Alkaline Phosphatase* 93 U/L (40-150); Aspartate Amino Transferase* 21 U/L (12-35); Blood Urea Nitrogen* 18 mg/dL (7-30); Carbon Dioxide* 28 mmol/L (20-32); Creatinine* 1.4 mg/dL (0.5-1.5); Estimated Glomerular Filt Rate 59 ml/min; Total Protein* 7.2 g/dL (6.0-8.3)
[2022-07-29 07:36] LABS: Alanine Aminotransferase* 29 U/L (4-50); Calcium* 9.6 mg/dL (8.4-10.6); Glucose* 106 mg/dL (60-115)
[2022-07-29 07:50] LABS: Troponin I* < 0.01 ng/mL (0.01-0.04)
--- NOTE | 2022-07-29 08:26 | P.DS_ITS ---
DS: Providers Provider Date Seen: 07/29/22 Date of admission: 07/28/22 04:42 Primary care physician: ROSEANN Delong Admitting Clinician: Boni Keyes MD Attending Physician on discharge: Olamide Ayala MD Date of Discharge: 07/29/22 DS: Diagnosis Discharge Diagnosis (1) Deep vein thrombosis (DVT) of right lower extremity: Status: Acute (2) Pulmonary embolism and infarction: Status: Acute Problem details: Started on Xarelto 07/28/22 DS: Summary Hospital Course Hospital Course: 57-year-old male, presented to the emergency room with right calf pain, cough, and left-sided chest pain. Patient was diagnosed with bilateral PEs and right lower extremity DVT, unprovoked. There was concern for right heart strain on admission CT scan, echocardiogram obtained (findings below, reassuring). Given extensive clot burden, patient was hospitalized overnight to evaluate for nocturnal hypoxia. He did well and did not require supplemental oxygen. Xarelto was initiated for anticoagulation, and patient is stable for discharge on hospital day 1. He will see his PCP or early next week to discuss hospital stay and potential referral to Hematology given unprovoked DVT/PE. Status at Discharge Functional status at discharge: independent ambulation Time Spent with Patient Time attestation: Total time spent providing and/or coordinating discharge services: Time spent: Greater than 30 minutes Specific discharge activities: Coordination of care, updates, follow-up scheduling Exam Narrative: Exam Narrative: GEN: Alert and oriented, sitting comfortably in bed and speaking in full sentences, nontoxic in appearance HEENT: Normal external ears, EOMIs bilaterally, no scleral icterus. CV: RRR, No concerning murmurs, rubs, or gallops R: LCTA bilaterally without concerning wheezing. Fine rales left base, air movement adequate Ext: wwp, mild right lower extremity edema Skin: No concerning skin lesions or rashes on exposed skin. Right nare is covered from recent Mohs surgery, not formally examined Neuro: Nonfocal Psych: Appropriate Const: Vital Signs, click to edit/add: Vital Signs - 24 hr 07/28/22 10:06 07/28/22 08:49 07/28/22 12:30 Temperature 98.6 F 98.8 F Pulse Rate Pulse Rate [Right Radial] 77 75 Respiratory Rate 16 16 Blood Pressure [Ri ght Arm] 134/91 H 121/71 Pulse Oximetry 98 96 Oxygen Delivery Me thod Room Air Room Air Room Air 07/28/22 15:00 07/28/22 15:00 07/28/22 19:00 Temperature 98.6 F 99.6 F Pulse Rate Pulse Rate [Right Radial] 76 76 79 Respiratory Rate 16 16 16 Blood Pressure [Ri ght Arm] 134/79 126/84 Pulse Oximetry 98 96 Oxygen Delivery Me thod Room Air Room Air 07/28/22 21:00 07/28/22 20:00 07/29/22 05:18 Temperature Pulse Rate 73 62 Pulse Rate [Right Radial] Respiratory Rate Blood Pressure [Ri ght Arm] Pulse Oximetry 96 Oxygen Delivery Me thod 07/29/22 00:30 07/29/22 00:30 07/29/22 00:30 Temperature 99.3 F Pulse Rate Pulse Rate [Right Radial] 73 73 Respiratory Rate 16 16 Blood Pressure [Ri ght Arm] 123/69 Pulse Oximetry 95 95 Oxygen Delivery Me thod Room Air 07/29/22 05:05 Temperature 98.7 F Pulse Rate Pulse Rate [Right Radial] 82 Respiratory Rate 16 Blood Pressure [Ri ght Arm] 124/82 Pulse Oximetry 94 Oxygen Delivery Me thod Room Air DS: Data Data Completed and Pending Completed studies during hospitalization: Final Impressions: 1. Normal left ventricular size, mildly increased wall thickness, hyperdynamic global systolic function, calculated EF of 75 %. 2. Right ventricular cavity size is normal, global systolic RV function is normal. 3. Normal left atrium size. 4. The aortic valve is normal, no stenosis and trivial regurgitation. 5. The mitral valve is normal, trace mitral regurgitation. 6. Tricuspid valve is normal. 7. Normal estimated pulmonary pressures by tricuspid regurgitation velocity and right atrial pressure (25 mmHg plus RAP). 8. The aortic sinus is dilated with a maximal diameter of 3.9 cm. 9. No pericardial effusion. Labs on day of discharge: Labs from last 24 hours 07/29/22 07/29/22 07/28/22 07:11 07:11 10:35 WBC 10.19 RBC 4.74 Hgb 14.1 Hct 42.4 MCV 90 MCH 30 MCHC 33 RDW Coeff of Sven 12.3 Plt Count 239 Neut % (Auto) 72.3 H Lymph % (Auto) 14.3 L Meeker % (Auto) 11.3 H Eos % (Auto) 1.2 Baso % (Auto) 0.5 Neut # (Auto) 7.40 H Lymph # (Auto) 1.50 Meeker # (Auto) 1.20 H Eos # (Auto) 0.12 Baso # (Auto) 0.05 Abs Immat Gran (auto) 0.04 ABG pH ABG pCO2 ABG pO2 ABG HCO3 ABG Total CO2 ABG O2 Saturation ABG Base Excess Sodium 136 Potassium 5.2 H Chloride 103 Carbon Dioxide 28 BUN 18 Creatinine 1.4 Estimated Creat Clear 63.50 Estimated GFR 59 Glucose 106 Calcium 9.6 Total Bilirubin 1.0 AST 21 ALT 29 Alkaline Phosphatase 93 Troponin I < 0.01 L < 0.01 L Total Protein 7.2 Albumin 4.3 07/28/22 08:30 WBC RBC Hgb Hct MCV MCH MCHC RDW Coeff of Sven Plt Count Neut % (Auto) Lymph % (Auto) Meeker % (Auto) Eos % (Auto) Baso % (Auto) Neut # (Auto) Lymph # (Auto) Meeker # (Auto) Eos # (Auto) Baso # (Auto) Abs Immat Gran (auto) ABG pH 7.48 H ABG pCO2 35 ABG pO2 77.5 L ABG HCO3 26 ABG Total CO2 22 ABG O2 Saturation 97 ABG Base Excess 2.4 Sodium Potassium Chloride Carbon Dioxide BUN Creatinine Estimated Creat Clear Estimated GFR Glucose Calcium Total Bilirubin AST ALT Alkaline Phosphatase Troponin I Total Protein Albumin Discharge Plan Discharge Disposition: Home, Self-Care Date of Admission: 07/28/22 04:42 Attending Provider on Discharge: Olamide Ayala Primary Care Provider: Johana Busby Condition: Stable Anticipated Discharge Date/Time: 07/29/22 08:28 Discharge Medications: New Xarelto 15 mg tablet 15 mg PO BID 19 Days Qty: 38 0RF Rx Instructions: with food, after 3 week course will need new Rx from PCP for 20mg Qd. 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 Please schedule with Johana early next week please.) Forms: [employer] Info Instructions
[2022-07-29] MEDS: RIVAROXABAN 10 MG TABLET 15 MG PO (09:26)
--- NOTE | 2022-07-29 10:22 | PC.NURSE ---
Discharge: Patient pleasant and cooperative. Patient vitally stable, lungs clear, BS WNL, IV removed, catheter intact. Patient independent in room and denies any pain, some tenderness to right calf. Patient tolerating regular diet and patient's reports feeling well. Patient signed belongings sheet and discharge form. Patient had no further question regarding discharge information as patient already had informationals regarding xarelto and DVT's from the night before. Patient left the floor by foot with spouse and his belongings at 1015.
== END 2022-07-29 10:15 | disposition home or self-care (01) ==
LOC: ED 03:46 → MEDSURG 04:45
PROVIDERS: Family Medicine; Admitting Provider Internal Medicine; Emergency Provider Family Medicine; PCP Physician Assistant; Visit Provider Internal Medicine
DX: I26.99 Other pulmonary embolism without acute cor pulmonale (principal); I82.401 Acute embolism and thrombosis of unspecified deep veins of right lower extremity; R06.02 Shortness of breath; R07.9 Chest pain, unspecified; M25.511 Pain in right shoulder; R07.81 Pleurodynia; R05.9 Cough, unspecified; Z84.89 Family history of other specified conditions
CPT/HCPCS: 36415; 36600; 71260; 80048; 80053; 82803; 83880; 84484; 85025; 85610; 85730; 87631; 93005; 93306; 93971; 94761; 96361; 96374; 99253; 99285; 99291; G0378; A9270; J1885; J7030; Q9967

== ENCOUNTER 2022-07-31 03:54 | Emergency (ER) | payer OTHER, SELFPAY ==
[2022-07-31 03:57] VITALS: BP 126/79; PULSE 63; RESP 18; TEMP 36.2; O2SAT 99; BMI 28.2
--- NOTE | 2022-07-31 04:43 | ED.GENADULT ---
HPI - General Adult General Chief complaint: Cough Stated complaint: Cough up some blood Time Seen by Provider: 07/31/22 04:16 Source: patient and family Mode of arrival: ambulatory Limitations: no limitations History of Present Illness HPI narrative: 57-year-old male presents to the emergency department with significant other. This morning he had a tickle sensation in the back of his throat and was able to cough up a tiny streak of blood tinged mucus. He brings it in with him for evaluation. The total size of this would be significantly less than 1 drop. He has continued to have the faintest pink tinged sputum x1 additionally after this. He was hospitalized earlier this week with an unprovoked pulmonary embolus. He has been appropriately worked up, echo was normal, has been started on therapeutic doses of Xarelto. He has continued to take the medication as prescribed. Discharge paperwork clearly said that he was to call with any hemoptysis. He became worried and presents to the ED. he has been doing a great job of staying active, even walking over a mi continuously most days with no significant symptoms. He is not short of breath, he is not running fevers. He has not noted any GI blood loss, black tarry stools or other abnormalities. He is not having any chest pain, palpitations or other unusual cardiac symptoms. He is taking the Xarelto as prescribed, no other blood thinners, has no other history of prior PE CT besides the recent episode. Hospital discharge summary, imaging, echo all reviewed. Past medical history most notable for recent pulmonary embolus, no other major long-term medical problems. Home medications include the therapeutic Xarelto and vitamin supplements. Socially he leads an active lifestyle, no recent pertinent travel. Nonsmoker. ROS is notable only for the hemoptysis as described above, otherwise denies any other generalized, HEENT, cardiovascular, respiratory, hematological, skin, GI or neurological changes. Related Data Home Medications Medication Instructions Recorded Confirmed calcium carbonate 500 mg calcium 500 mg PO DAILY 07/28/22 07/31/22 (1,250 mg) tablet (Oyster Shell Calcium) cholecalciferol (vitamin D3) 25 1,000 unit PO .QOD 07/28/22 07/31/22 mcg (1,000 unit) tablet (Vitamin D3) multivitamin (Daily Multi-Vitamin 1 tab PO .QOD 07/28/22 07/31/22 tablet) Previous Rx's Medication Instructions Recorded rivaroxaban 15 mg tablet (Xarelto) 15 mg PO BID 19 days #38 tabs 07/28/22 Allergies Allergy/AdvReac Type Severity Reaction Status Date / Time No Known Drug Allergies Allergy Verified 07/31/22 04:00 [facility] Medical History Basal cell carcinoma Hyperlipidemia Surgical History H/O hernia repair Social History Highest level of school completed/degree received: Doctoral degree Smoking Status: Never smoker Do you use any of these nicotine containing products: None How often do you have a drink containing alcohol: monthly or less AUDIT-C Alcohol total score: 1 Non-prescribed substance use: denies use Caffeine: No Exam Const: Vital Signs, click to edit/add: Vital Signs - 24 hr 07/31/22 03:57 Temperature 97.1 F L Pulse Rate [Left P ulse Oximeter] 63 Respiratory Rate 18 Blood Pressure [Ri ght Upper Arm] 126/79 Pulse Oximetry 99 Oxygen Delivery Me thod Room Air Documenting provider has reviewed patient's vital signs: yes Common normals: no apparent distress General appearance: cooperative and well kempt Orientation/consciousness: Yes awake HENMT: Common normals: normocephalic Head and scalp: normocephalic Mouth: oral and palatal mucosa normal Throat: posterior oropharynx normal Other: Oropharynx without any signs of active bleeding, dental injury or swelling to the posterior pharynx. Eye: Common normals: conjunctivae normal and no scleral icterus Conjunctiva: conjunctiva(e) normal Neck & C-Spine: Common normals: full ROM and no lymphadenopathy Resp: Common normals: normal respiratory effort, no use of accessory muscles and clear to auscultation bilaterally Effort & inspection: able to speak in complete sentences Auscultation: clear to auscultation bilaterally Cardio: Common normals: regular rate, regular rhythm, S1 normal heart sound, S2 normal heart sound, no murmurs and peripheral pulses 2+ throughout Rate: regular rate Rhythm: regular rhythm Heart sounds: S1 normal and S2 normal Peripheral pulses: pulses 2+ throughout Neuro: Sensorium/orientation: awake Speech: speech normal Motor exam: no tremor noted and no movement abnormalities noted Psych: Appearance: well kempt Attitude: engaged Mood and affect: euthymic mood Insight: insight good Judgement: judgment good Skin: Common normals: no rashes or lesions noted Narrative: Recent wound on side of nose, covered, no surrounding redness. Consistent with hospitalist documentation of recent Mohs procedure General skin exam: no rashes or lesions noted Course Vital Signs Vital signs: Initial Vital Signs Temperature 97.1 F L 07/31/22 03:57 Temperature Source Temporal Artery Scan 07/31/22 03:57 Pulse Rate 63 07/31/22 03:57 Respiratory Rate 18 07/31/22 03:57 Blood Pressure 126/79 07/31/22 03:57 Blood Pressure Mean 94 07/31/22 03:57 Blood Pressure Position Sitting 07/31/22 03:57 Pulse Oximetry 99 07/31/22 03:57 Oxygen Delivery Method 07/31/22 03:57 Vital Signs Temperature 97.1 F L 07/31/22 03:57 Pulse Rate 63 07/31/22 03:57 Respiratory Rate 18 07/31/22 03:57 Blood Pressure 126/79 07/31/22 03:57 Pulse Oximetry 99 07/31/22 03:57 Oxygen Delivery Method 07/31/22 03:57 Temperature 97.1 F L 07/31/22 03:57 Pulse Rate 63 07/31/22 03:57 Respiratory Rate 18 07/31/22 03:57 Blood Pressure 126/79 07/31/22 03:57 Pulse Oximetry 99 07/31/22 03:57 Oxygen Delivery Method 07/31/22 03:57 Medical Decision Making [facility] Narrative Medical decision making narrative: The tiny streak of blood tinged mucus that they bring in on a tissue was fully examined. This was over an hour ago and he has no further signs of bleeding. We discussed the risks and benefits of further workup. Together, through shared medical decision making, we elected not to do any further blood work or imaging but rather to discuss parameters of when to worry with close outpatient watchful waiting. Reassurance given, well received. Discussed appropriate activity levels following pulmonary embolus, remodeling in the lungs, risk for pneumonia, signs of GI bleed and worrisome volumes for hemoptysis. He is in agreement and verbalizes understanding. Discharge Plan Discharge Clinical Impression: Cough with hemoptysis Patient Disposition: Home w/ Parent or Adult Condition: Stable Instructions: Hemoptysis (ED) Additional Instructions: I am glad to hear that you are working your lungs so well after your blood clot. Being on the blood thinners and the natural healing process after this type of clot can unfortunately lead to some bleeding, likely causing the episode that you had today. We should quantify what is a safe amount and what is an unsafe amount. Tiny streaks like this most likely come from irritation in the throat and upper parts of your lungs and airway from remodeling after healing from the clot and being on the strong blood thinners. We are going to have to be okay with this happening. If you start coughing up blood the amount of a golf ball at any point or if you are continuously coughing up small clots, or prolonged and persistent liquid red blood, please come back to the emergency department. Small streaks like the 1 you showed me today can be expected a few times per day and are not worrisome. If at any point you become very short of breath, especially if you are having blood, immediately come to the ED or call 911. Activity Level: No Restrictions Discharge Diet: Regular Prescriptions: No Action multivitamin [Daily Multi-Vitamin] Tablet 1 tab PO .QOD cholecalciferol (vitamin D3) [Vitamin D3] 25 mcg (1,000 unit) tablet 1,000 unit PO .QOD calcium carbonate [Oyster Shell Calcium] 500 mg calcium (1,250 mg) tablet 500 mg PO DAILY Xarelto 15 mg tablet 15 mg PO BID 19 Days Qty: 38 0RF Rx Instructions: with food, after 3 week course will need new Rx from PCP for 20mg Qd. Follow Up/Referrals: Johana Busby PA [Primary Care Provider] - Stand Alone Forms: [employer] Info Instructions
--- OUTSIDE RECORDS SUMMARY | 2022-07-31 04:45 | XMS_ITS | Clinical Summary ---
:1965 Author Organization [employer] [facility] Affiliates [place] [address] Care Team Providers Name Role Phone Johana Busby Primary Care Provider Allergies No known active allergies Medications No known medications Active Problems Problem Noted Date Skin cancer 07/02/2022 Overview: 06/30/22: Right nasal ala; Basal cell car cinoma - needs Mohs Flat Top-Schlatter's disease of both knees 06/09/2022 Routine adult health maintenance 10/31/2017 Overview: Colonoscopy 10/2017 normal , repeat in 10 years Osteoarthritis of both hands 09/23/2016 Elevated serum creatinine 09/23/2016 High serum potassium level 09/23/2016 Mixed hyperlipidemia 06/13/2009 Encounters Date Type Specialty Care Team Description 07/28/2022 Orders Only <No scans attac hed> 07/02/2022 Telephone Wandy Luque Results MD Candy [...] Assigned at Date Recorded Not on file Obstetrics History Last Filed Vital Signs Vital Sign Reading Time Taken Comments Blood Pressure 127/84 06/09/2022 7:29 AM CDT Pulse 64 06/09/2022 7:29 AM CDT Temperature 36.1 ??C (97 ??F) 11/11/2017 4:38 PM [facility] Respiratory Rate - - Oxygen Saturation 97% 06/09/2022 7:29 AM CDT Inhaled Oxygen Concentration - - Weight 93.7 kg (206 lb 9.6 oz) 06/09/2022 7:29 AM CDT Height 179.8 cm (5' 10.79) 05/06/2022 1:33 PM CDT Body Mass Index 28.99 05/06/2022 1:33 PM CDT Plan of Treatment Upcoming Encounters Date Type Specialty Care Team Description 08/12/2022 Office Visit Johana Busby Ma, PA [address] [phone] (Wo rk) 09/16/2022 Office Visit Ever Agee MD [address] [place] [phone] (Wo rk) Health Maintenance Due Date Last Done Comments Influenza for age 50-64 06/17/2022 08/08/2021, 07/05/2020, [...] Completed 05/06/2022 18-79 Tdap Completed 05/06/2022, 06/07/2012 COVID-19 vaccine series Completed 07/05/2022, 02/22/2022, 09/15/2021, Additional history exists Procedures Procedure Name Priority Date/Time Associated Diagnosis Comme nts ECHO COMPLETE WO Routine 07/28/2022 11:15 Pulmonary embolism R esults for this CONTRAST AM CDT (HC) procedure are i n the results section. PATH TISSUE EXAM Routine 06/30/2022 8:40 AM [...] lts section. from Last 3 Months Results ECHO COMPLETE WO CONTRAST (07/28/2022 11:15 AM CDT) P athologist Signature AORTIC VALVE 5 mmHg MEAN PG PEAK TR 2.5 m/s VELOCITY LVEDD 4.2 cm EJECTION 75 % FRACTION Anatomical Region Laterality Modality HEART Ultrasound Specimen (Source) Anatomical Collection Method Collection Time Re ceived Time Location / / Volume Laterality 07/28/2022 10:46 AM CDT Narrative 07/28/2022 1:51 PM CDT ECHOCARDIOGRAM MARLENY BOONE ? Accessi on#: ?? [id number] : ?1965 57 years Study Date: ?? 07/28/2022 10:46:14 AM Gender: M ?BP: ? 153/87 mmHg Height: 178.00 cm ?BSA: ?2.11 m? ?? Weight: 93.00 kg ? Tech: ? MCK ? Referring MD: LAMAR FERREIRA Site: ? [facility] Reading Location: [facility] Procedure: 2D, Color Doppler and Spectra l Doppler. Indication for study: Pulmonary embolism Cardiac Rhythm: Normal sinus.Study quali ty: Final Impressions: 1. Normal left ventricular size, mildly increased wall thickness, hyperdynamic global systolic function, calculated EF of 75 %. 2. Right ventricular cavity size is nor mal, global systolic RV function is normal. 3. Normal left atrium size. 4. The aortic valve is normal, no steno sis and trivial regurgitation. 5. The mitral valve is normal, trace mi tral regurgitation. 6. Tricuspid valve is normal. 7. Normal estimated pulmonary pressures by tricuspid regurgitation velocity and right atrial pressure (25 mmHg plus RAP). 8. The aortic sinus is dilated with a m aximal diameter of 3.9 cm. 9. No pericardial effusion. Chamber Sizes and Function Normal left ventricular size, mildly inc reased wall thickness, hyperdynamic global systolic function, calculated EF of 75 %. Left atrial size is normal. Right ventricular cavity size is normal, global s ystolic RV function is normal. The right atrium is normal. Right atrial area is 12 cm? ??. The pulmonary artery is not well visualized. The sinus of Valsalva is dilated. The ascending aorta is normal sized. Valves, RV Pressures and Diastolic Funct ion The aortic valve is normal in structure, no stenosis and trivial regurgitation. The mitral valve is normal in structure, trace mitral regurgitation. Normal diastolic function. The tricuspid valve is nor mal in structure. Tricuspid regurgitatio n is trace regurgitation. The tricuspid regurgitant velocity is 2.5 m/s, the estimated right ventricular systolic pressure is 25 mmHg plus right atrial pressure. There is normal estimated pulmonary pres sure by tricuspid regurgitation velocity and right atrial pressure. The pulmonic valve is normal. Trace pulmonary regurgitation. Masses, Effusion, Shunts There is no pericardial effusion. The in ferior vena cava is normal sized, respiratory size variation greater than 50%. No left to right shunting was detected by limited color flow Doppler interrogation of the interatrial septum. MEASUREMENTS AND CALCULATIONS 2-D Measurements and LV Function: LVID (d) 4.2 cm Planimetered EF 75 % LVID (s) 2.6 cm LV FS% (2D) ? 38 % IVS (d) ??1.2 cm LVOT diameter ?? 2.0 cm LVPW (d) 1.2 cm HR ?7 9 bpm Ao Sinus 3.9 cm RA area ? 12 c m? ?? Asc Ao ?? 3.6 cm RV Max 4C (d) ?? 3.6 cm LA ? 3.3 cm Diastology: Mitral ?Tissue Doppler ?Pulmonary veins E Peak 0.7 m/s ??e', Septum ? 0.09 m /s Pulm s ?63.5 cm/s A Peak 0.6 m/s ??e', Lateral ?0.12 m /s Pulm d ?47.5 cm/s E/A ?1.2 ?E/e' Average ?? 6.3 8 ? Pulm s/d ratio ??1.34 DT ? 211 msec IVRT ?? 90 msec Aortic Valve: Vmax ? 1.4 m/s ??MEDHAT (V) ?? 2.47 cm? ?? VTI ?0.29 m ?? MEDHAT (I) ?? 2.50 cm? ?? LVOT V max 1.1 m/s ??Max PG ?8 mmHg LVOT VTI ?? 0.23 m ?? Mean PG ?? 5 mmHg SV ? 73 ml ?Dim Index 0.80 SV index ?? 35 ml/m? ?? CO ?5.8 l/min ?CI ?2.7 l/min/m? ?? Mitral Valve: MVA ?3.6 cm? ?? MV P 1/2 61 msec Tricuspid Valve and estimated PA pressur es: TR Vmax 2.5 m/s TAPSE 2.3 cm TR maxG 25 mmHg . This study was interpreted by an [facility] facility. CC: [facility], Med/ Surg - IP [facility]. ??Final ?? Procedure Note Sandra Dueñas, [facility] - 07/28/2022Formatt ing of this note might be different from the original. ECHOCARDIOGRAM MARLENY BOONE : 1965 57 years Study Date: 07/17 10:46:14 AM Gender: M BP: 153/87 mmHg Height: 178.00 cm BSA: 2.11 m? ?? Weight: 93.00 kg Tech: RO Referring MD: LAMAR FERREIRA Site: [facility] Reading Location: [facility] Procedure: 2D, Color Doppler and Spectra l Doppler. Indication for study: Pulmonary embolism Cardiac Rhythm: Normal sinus.Study quali ty: Final Impressions: 1. Normal left ventricular size, mildly increased wall thickness, hyperdynamic global systolic function, calculated EF of 75 %. 2. Right ventricular cavity size is nor mal, global systolic RV function is normal. 3. Normal left atrium size. 4. The aortic valve is normal, no steno sis and trivial regurgitation. 5. The mitral valve is normal, trace mi tral regurgitation. 6. Tricuspid valve is normal. 7. Normal estimated pulmonary pressures by tricuspid regurgitation velocity and right atrial pressure (25 mmHg plus RAP). 8. The aortic sinus is dilated with a m aximal diameter of 3.9 cm. 9. No pericardial effusion. Chamber Sizes and Function Normal left ventricular size, mildly inc reased wall thickness, hyperdynamic global systolic function, calculated EF of 75 %. Left atrial size is normal. Right ventricular cavity size is normal, global systolic RV function is normal. The right atrium is normal. Right atrial area is 12 cm? ??. The pulmonary artery is not well visualized. The sinus of Valsalva is dilated. The ascending aorta is normal sized. Valves, RV Pressures and Diastolic Funct ion The aortic valve is normal in structure, no stenosis and trivial regurgitation. The mitral valve is normal in structure, trace mitral regurgitation. Normal diastolic function. The tricuspid valve is normal in structure. Tricuspid regurgitation is tr sheree regurgitation. The tricuspid regurgitant velocity is 2.5 m/s, the estimated right ventricular systolic pressure is 25 mmHg plus right atrial pressure. There is normal estimated pulmonary pressure by tricuspid regurgit ation velocity and right atrial pressure. The pulmonic valve is normal. Trace pulmonary regurgitation. Masses, Effusion, Shunts There is no pericardial effusion. The in ferior vena cava is normal sized, respiratory size variation greater than 50%. No left to right shunting was detected by limited color flow Doppler interrogation of the interatrial septum. MEASUREMENTS AND CALCULATIONS 2-D Measurements and LV Function: LVID (d) 4.2 cm Planimetered EF 75 % LVID (s) 2.6 cm LV FS% (2D) 38 % IVS (d) 1.2 cm LVOT diameter 2.0 cm LVPW (d) 1.2 cm HR 79 bpm Ao Sinus 3.9 cm RA area 12 cm? ?? Asc Ao 3.6 cm RV Max 4C (d) 3.6 cm LA 3.3 cm Diastology: Mitral Tissue Doppler Pulmonary veins E Peak 0.7 m/s e', Septum 0.09 m/s Pulm s 63.5 cm/s A Peak 0.6 m/s e', Lateral 0.12 m/s Pulm d 47.5 cm/s E/A 1.2 E/e' Average 6.38 Pulm s/d ratio 1.34 DT 211 msec IVRT 90 msec Aortic Valve: Vmax 1.4 m/s MEDHAT (V) 2.47 cm? ?? VTI 0.29 m MEDHAT (I) 2.50 cm? ?? LVOT V max 1.1 m/s Max PG 8 mmHg LVOT VTI 0.23 m Mean PG 5 mmHg SV 73 ml Dim Index 0.80 SV index 35 ml/m? ?? CO 5.8 l/min CI 2.7 l/min/m? ?? Mitral Valve: MVA 3.6 cm? ?? MV P 1/2 61 msec Tricuspid Valve and estimated PA pressur es: TR Vmax 2.5 m/s TAPSE 2.3 cm TR maxG 25 mmHg . This study was interpreted by an [facility] redited facility. CC: [facility], Med/ Surg - IP [facility]. Final Lamar Ferreira ECHO ORD PATH TISSUE EXAM (06/30/2022 8:40 AM CDT) Component Value Ref Test Analysis Performed At [facility] gist Range Method Time Signature Case Report Pathology Report ?Case: [id number] ? 07/02/2022 [facility] Authorizing Provider: ??Jovany freedman, Wandy Gupta, ??Collected: ? 06/30/2022 0840 ? 8:45 AM CDT LABORAT ORY- ? MD ? NTRAL Ordering Location: ? [facility] Vyas ? Received: ?06/30/2022 0857 ? LABOR ATORY ? Clinic ? Pathologist: ? Maria Esther Delatorre MD ? Specimen: ?Nose, right a la ? Final A) SKIN, RIGHT NASAL ALA, BIOPSY: 2021 [facility] Electronically Diagnosis 1. Basal cell carcinoma, nodular type: 8 :45 AM CDT LABORATORY-CE signed by ?? a. Perineural invasion: Absent NTRAL Maria Esther Delatorre ?? b. Margins: Positive LABOR CARLOS Wiley MD on 07/02/2022 at 8:45 AM Clinical Rule out 07/02/2022 [facility] [employer] Information atypia 8:45 AM CDT LABORATORY-CE NTRAL LABORATORY Gross A) Received in formalin, lab eled with the patient's name and right ala, is a 0.4 x 0.3 cm skin biopsy. There is a 0.3 x 0.2 x 0.1 cm raised davis lesion. The specimen is inked green, bisected and entirely submitted in one cassette. 07/02/2022 [facility] Description 8:45 AM CDT LABORATORY-CE Dk Sousa 06/30/2022 4:02 PM NTRAL LABORATORY Microscopic The final 07/02/2022 [facility] Description diagnosis is 8:45 AM CDT LABORATORY-CE based on NTRAL microscopic LABORATORY examination of appropriate sections of all specimens. Additional 07/02/2022 [facility] [place] Information Interpreted at [facility], Central Laboratory - [address], [place] [address] 8:45 AM CDT LABORATORY-CE NTRAL LABORATORY Specimen Anatomical Collection Method Collection Time Receive d Time (Source) Location / / Volume Laterality Other SPECIMEN FROM NOSE Non-Blood / 06/30/2022 8:40 AM 8:57 / Unknown Unknown CDT AM CDT Wandy Luque MD PATHOLOGY/CYTOLOGY Performing Organization Address City/State/ZIP Code Phon e Number [facility] [address] [place] [address] LABORATORY-CENTRAL [address] CARDIAC CALCIUM SCORE [...] note that all CT scans at this [facility] use dose modulation, iterative reconstruction and/or weight-b ased dosing when appropriate to reduce radiation dose to as low as reaso nably achievable. ?? MONET CALVILLO M.D. [facility] [employer] [email or web address] NERIS/kely Narrative 05/31/2022 12:04 PM CDT For Patients: As a result of the Century Cures Act, medical imaging exams and procedure reports are released immediately into your electronic medical record. ??You may view this repo rt before your referring provider. ?? If you have questions, please contact [facility] care provider. CT CARDIAC CALCIUM SCORING, 05/31/2022 [...] detected no coronary calcifications. ??According to the [facility] state of knowledge (O'Maria E, Circulation 2000; [...] HEMOGLOBIN A1C SCREENING (05/06/2022 2:18 PM CDT) P athologist Signature HEMOGLOBIN A1C 5.3 <=6.4 % 05/06/2022 [facility] [place] SCREENING 9:59 PM CDT [facility] Specimen Anatomical Collection Method / Collection Time Recei yadiel Time (Source) Location / Volume Laterality Blood BLOOD SPECIMEN / Venipuncture / 05/06/2022 2:18 2021 2:19 Unknown Unknown PM CDT PM CDT Narrative [facility] 05/06/2022 9:59 PM CDT ? (<5.7%) ?Normal ? (5.7% to 6.4%) ? Indicates pr ediabetes ? (>=6.5%) ? Confirms diabetes Falsely low levels may be seen with: Recent Transfusion, Recent Significant B lood Loss, Hemolytic Diseases, or Falsely elevated levels may be seen with : Untreated Anemias, Splenectomy Johana WHITFIELD CHEMISTRY Performing Organization Address City/State/ZIP Code Phon e Number [facility] [address] [place] [address] LABORATORY-CENTRAL 2000 LABORATORY (ABNORMAL) LIPID PANEL W REFLEX MEASURED LDL (05/06/2022 2:18 PM CDT) [facility] Method Time Signature CHOLESTEROL,TOTAL 270 (H) 100 [...] CDT Johana WHITFIELD CHEMISTRY Performing Organization Address City/[facility]/ZIP Code Phon e Number [facility] [address] [place] [address] LABORATORY-CENTRAL 2000 LABORATORY ANTI HCV (05/06/2022 2:18 PM CDT) [facility] [employer] Method Time Signature HEPATITIS C Non-Reacti Non-Reacti 05/07/2022 [facility] ANTIBODY ve ve 3:45 AM CDT LABORATORY-[facility] TRAL LABORATORY Comment: Antibodies to HCV not detected; does not exclude the possibility of exposure to HCV. Specimen Anatomical Collection Method / Collection Time Recei yadiel Time (Source) Location / Volume Laterality Blood BLOOD SPECIMEN / Venipuncture / 05/06/2022 2:18 2021 2:19 Unknown Unknown PM CDT PM CDT Johana WHITFIELD SEND OUTS Performing Organization Address City/State/ZIP Code Phon e Number [facility] [address] [place] [address] LABORATORY-CENTRAL 2000 LABORATORY (ABNORMAL) COMP METABOLIC PANEL (05/06/2022 2:18 PM CDT) [facility] [employer] Method Time Signature SODIUM 139 135 - 145 05/07/2022 [facility] mmol/L 1:56 AM CDT LABORATORY-[facility] TRAL LABORATORY POTASSIUM 4.4 3.5 - 5.0 05/07/2022 [facility] mmol/L 1:56 AM CDT LABORATORY-[facility] TRAL LABORATORY CHLORIDE 101 98 - 110 05/07/2022 [facility] mmol/L 1:56 AM CDT LABORATORY-[facility] TRAL LABORATORY CO2,TOTAL 25 21 - 31 05/07/2022 [facility] [place] mmol/L 1:56 AM CDT LABORATORY-[facility] TRAL LABORATORY ANION GAP 13 5 - 18 05/07/2022 [facility] 1:56 AM CDT LAB[facility] TRAL LABORATORY GLUCOSE 82 65 - 100 05/07/2022 [facility] mg/dL 1:56 AM CDT LABORATORY-[facility] TRAL LABORATORY CALCIUM 9.9 8.5 - 05/07/2022 [facility] 10.5 1:56 AM CDT LABORATORY-[facility] mg/dL TRAL LABORATORY BUN 15 8 - 25 05/07/2022 [facility] mg/dL 1:56 AM CDT LABORATORY-[facility] TRAL LABORATORY CREATININE 1.54 (H) 0.72 - 05/07/2022 [facility] 1.25 1:56 AM CDT LABORATORY-[facility] mg/dL TRAL LABORATORY BUN/CREAT RATIO 10 10 - 20 05/07/2022 [facility] 1:56 AM CDT LABORATORY-[facility] TRAL LABORATORY ALBUMIN 4.8 3.5 - 5.2 05/07/2022 [facility] g/dL 1:56 AM CDT LABORATORY-[facility] TRAL LABORATORY PROTEIN,TOTAL 7.2 6.0 - 8.0 05/07/2022 [facility] g/dL 1:56 AM CDT LABORATORY-[facility] TRAL LABORATORY GLOBULIN 2.4 2.0 - 3.7 05/07/2022 [facility] g/dL 1:56 AM CDT LABORATORY-[facility] TRAL LABORATORY A/G RATIO 2.0 1.0 - 2.0 05/07/2022 [facility] 1:56 AM CDT LABORATORY-[facility] TRAL LABORATORY BILIRUBIN,TOTAL 1.2 0.2 - 1.2 05/07/2022 [facility] mg/dL 1:56 AM CDT LABORATORY-[facility] TRAL LABORATORY ALK PHOSPHATASE 64 50 - 136 05/07/2022 [facility] IU/L 1:56 AM CDT LABORATORY-[facility] TRAL LABORATORY ALT (SGPT) 36 8 - 45 05/07/2022 [facility] IU/L 1:56 AM CDT LABORATORY-[facility] TRAL LABORATORY AST (SGOT) 28 2 - 40 05/07/2022 [facility] IU/L 1:56 AM CDT LABORATORY-[facility] TRAL LABORATORY eGFR 53 (L) >90 05/07/2022 [facility] [place] mL/min/1. 1:56 AM CDT LABORATORY-[facility] 73m2 TRAL [...] Organization Address City/State/ZIP Code Phon e Number [facility] [address] [place] [address] LABORATORY-CENTRAL 2000 LABORATORY from Last 3 Months Insurance Payer Benefit Plan / Subscriber ID Effective Dates Phone Addre ss Type Group MEDICA MEDICA CHOICE [id number] 2021-Present [address] [address] [place] [address] Marleny Boone [employer] 1965 [address] (Home) [place] [phone] [place], [place] (Work) [address] Care Teams Heavy Threader Relationship Specialty Start Date End Date Johana Busby PA PCP - General 09/02/07 [address] [place], [place] [phone]
== END 2022-07-31 04:51 | disposition home or self-care (01) ==
LOC: ED 04:43
PROVIDERS: Emergency Provider Family Medicine; PCP Physician Assistant
DX: R04.2 Hemoptysis (principal); R05.9 Cough, unspecified
CPT/HCPCS: 99281; 99282

== ENCOUNTER 2022-10-07 16:58 | Emergency (ER) | payer OTHER, SELFPAY ==
[2022-10-07 17:38] VITALS: BP 149/90; PULSE 76; RESP 16; TEMP 36.5; O2SAT 98; BMI 29.4
--- NOTE | 2022-10-07 18:58 | ED.GENADULT ---
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 Patient states that he was sleeping and when he awoke he felt like he actually aspirated food but had not been eating. This caused him to cough for approximately 1/2 hour. He had minimal secretions but they were clear. He had no blood in that cough. Now in the emergency room he has no symptoms. He denied any chest pain during this episode. He contacted the nurse line and they felt it might be a good idea to be evaluated. Mahesh notes that he is fully vaccinated for COVID x5. However 2 weeks ago he and other family members did come down with COVID. He states he probably had the worst of all of them and was coughing fairly significantly. He is now feeling improved and even was back to work although at reduce capacity. He is a psychologist. Usually very healthy states walks to work. No shortness of breath at this time. No recent fever. Related Data Home Medications Medication Instructions Recorded Confirmed calcium carbonate 500 mg calcium 500 mg PO DAILY 07/28/22 10/07/22 (1,250 mg) tablet (Oyster Shell Calcium) multivitamin (Daily Multi-Vitamin 1 tab PO .QOD 07/28/22 10/07/22 tablet) rivaroxaban 20 mg tablet (Xarelto) 20 mg PO .evening 10/07/22 10/07/22 Previous Rx's Medication Instructions Recorded rivaroxaban 15 mg tablet (Xarelto) 15 mg PO BID 19 days #38 tabs 07/28/22 Allergies Allergy/AdvReac Type Severity Reaction Status Date / Time No Known Drug Allergies Allergy Verified 10/07/22 17:43 Review of Systems Status of ROS: Reports: 6 or more systems reviewed and unremarkable except as noted in History and below Const: Denies: fever or chills ENMT: Denies: throat pain, neck pain, difficulty swallowing, hoarseness or swelling of lips/tongue Cardio: Denies: chest pain, palpitations or shortness of breath with exertion Resp: Reports: cough (Approximately 30 minutes now resolved); Denies: shortness of breath GI: Denies: abdominal pain, vomiting or difficulty swallowing Musculo: Denies: neck pain PFSH [facility] Medical History Basal cell carcinoma Hyperlipidemia Surgical History H/O hernia repair Social History Highest level of school completed/degree received: Doctoral degree Smoking Status: Never smoker Do you use any of these nicotine containing products: None How often do you have a drink containing alcohol: monthly or less AUDIT-C Alcohol total score: 1 Non-prescribed substance use: denies use Caffeine: No service: No Exam Narrative: Exam Narrative: Patient is alert and oriented. Very well-spoken gentleman no acute distress. Eyes are clear as is oral cavity. Neck is supple. No swelling of the mucous membranes are tongue. Heart with regular rate and rhythm. No murmur or rub. Lungs are clear in all lung fox. Moving all extremities. Const: Vital Signs, click to edit/add: Vital Signs - 24 hr 10/07/22 17:38 Temperature 97.7 F Pulse Rate [Right Pulse Oximeter] 76 Respiratory Rate 16 Blood Pressure [Ri ght Upper Arm] 149/90 H Pulse Oximetry 98 Oxygen Delivery Me thod Room Air Documenting provider has reviewed patient's vital signs: yes Course Vital Signs Vital signs: Initial Vital Signs Temperature 97.7 F 10/07/22 17:38 Temperature Source Temporal Artery Scan 10/07/22 17:38 Pulse Rate 76 10/07/22 17:38 Respiratory Rate 16 10/07/22 17:38 Blood Pressure 149/90 H 10/07/22 17:38 Blood Pressure Mean 109 10/07/22 17:38 Blood Pressure Position Sitting 10/07/22 17:38 Pulse Oximetry 98 10/07/22 17:38 Oxygen Delivery Method 10/07/22 17:38 Vital Signs Temperature 97.7 F 10/07/22 17:38 Pulse Rate 76 10/07/22 17:38 Respiratory Rate 16 10/07/22 17:38 Blood Pressure 149/90 H 10/07/22 17:38 Pulse Oximetry 98 10/07/22 17:38 Oxygen Delivery Method 10/07/22 17:38 Temperature 97.7 F 10/07/22 17:38 Pulse Rate 76 10/07/22 17:38 Respiratory Rate 16 10/07/22 17:38 Blood Pressure 149/90 H 10/07/22 17:38 Pulse Oximetry 98 10/07/22 17:38 Oxygen Delivery Method 10/07/22 17:38 Medical Decision Making MDM Narrative Medical decision making narrative: 1. Coughing episode-resolved at this time x-ray is reassuring with no evidence of pneumonia. Oxygen saturations are reassuring. Would ask that Mahesh continue to monitor and seek medical attention for fever, shortness of breath or increasing cough. 2. Disposition-home with his . Medical Records Medical records reviewed: Yes I reviewed the patient's medical records Imaging Data Chest x-ray: My impression: Increased lung markings that appear to be chronic. No infiltrates. Radiologist's impression: Cardiovascular and mediastinum:? Heart size and vasculature are normal in caliber and appearance.? Lungs and pleural spaces:? Lungs are clear.? No sign of infiltrate or mass. ?No sign of pleural effusion.? No pneumothorax.? Bones and soft tissues:? No significant findings. IMPRESSION: No acute or significant findings. Discharge Plan Discharge Clinical Impression: Cough Patient Disposition: Home, Self-Care Condition: Unchanged Additional Instructions: Continue monitoring. Follow-up as needed especially for shortness of breath, increasing cough and fever. Prescriptions: No Action multivitamin [Daily Multi-Vitamin] Tablet 1 tab PO .QOD calcium carbonate [Oyster Shell Calcium] 500 mg calcium (1,250 mg) tablet 500 mg PO DAILY Xarelto 15 mg tablet 15 mg PO BID 19 Days Qty: 38 0RF Rx Instructions: with food, after 3 week course will need new Rx from PCP for 20mg Qd. Xarelto 20 mg tablet 20 mg PO .evening Label Comments: TAKE 1 TABLET (20 MG) BY MOUTH ONCE DAILY WITH EVENING MEAL. Follow Up/Referrals: Johana Busby PA [Primary Care Provider] - Stand Alone Forms: [facility] Info Instructions
--- NOTE | 2022-10-07 19:08 | CRLHL7_ITS ---
For Patients: As a result of the Cures Act, medical imaging exams and procedure reports are released immediately into your electronic medical record. You may view this report before your referring provider. If you have questions, please contact your health care provider. INDICATION: Cough. TECHNIQUE: Chest 2 views. COMPARISON: None. FINDINGS: Cardiovascular and mediastinum: Heart size and vasculature are normal in caliber and appearance. Lungs and pleural spaces: Lungs are clear. No sign of infiltrate or mass. No sign of pleural effusion. No pneumothorax. Bones and soft tissues: No significant findings. IMPRESSION: No acute or significant findings. Dictated by Tanner Tracy MD @ 10/07/2022 7:39:44 PM (Electronically Signed)
[2022-10-07 19:56] VITALS: BP 138/72; PULSE 72; RESP 16; O2SAT 98
== END 2022-10-07 19:57 | disposition home or self-care (01) ==
PROVIDERS: Emergency Provider Family Medicine; PCP Physician Assistant
DX: R05.9 Cough, unspecified (principal)
CPT/HCPCS: 71046; 99283; 99284

== ENCOUNTER 2022-11-21 09:30 | Emergency (ER) | payer OTHER, SELFPAY ==
[2022-11-21 09:39] VITALS: BP 141/88; PULSE 70; RESP 16; TEMP 36.4; O2SAT 97; BMI 29.4
--- NOTE | 2022-11-21 09:43 | ED_ITS ---
HPI - General Adult General Time Seen by Provider: 09:43 Date Seen: 11/21/22 Chief complaint: Lower Extremity Swelling Stated complaint: pain in right soleus. 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 Numerous radiological studies as well as blood tests did not reveal any underlying medical condition or mutation such as factor 5 that would have cause this. This was unprovoked. Patient finished his Xarelto in September of 2022. He has been well since that time until this morning. He notes that [facility] [place] where they have been doing quite a bit of sitting. This morning he was up standing but swaying as he was singing with the group. He noted 1 hour of right calf pain. Of course this did concern him and he left the group early and came to the emergency room. Fortunately, no shortness of breath fever cough or chills. He has not noticed a difference in size of the calves. He has not had any in it numbness or tingling. Related Data Home Medications Medication Instructions Recorded Confirmed No Known Home Medications 11/21/22 11/21/22 Allergies Allergy/AdvReac Type Severity Reaction Status Date / Time No Known Drug Allergies Allergy Verified 11/21/22 09:42 Review of Systems Const: Denies: fever ENMT: Denies: neck pain Cardio: Denies: chest pain, swelling of feet/ankles or shortness of breath with exertion Resp: Denies: shortness of breath or cough Musculo: Denies: neck pain PFSH PFSH Medical History Basal cell carcinoma Hyperlipidemia Surgical History H/O hernia repair Social History Highest level of school completed/degree received: Doctoral degree Smoking Status: Never smoker Do you use any of these nicotine containing products: None How often do you have a drink containing alcohol: monthly or less AUDIT-C Alcohol total score: 1 Non-prescribed substance use: denies use Caffeine: No service: No Exam Narrative: Exam Narrative: Alert and oriented. Very pleasant well-spoken gentleman in no acute distress. Heart with regular rate and rhythm. Lungs are clear to auscultation. Examination of lower extremities show no difference in size. There is no calf tenderness. No masses are noted. Pedal pulses are symmetrical and intact. Const: Vital Signs, click to edit/add: Vital Signs - 24 hr 11/21/22 09:39 Temperature 97.6 F Pulse Rate [Left P ulse Oximeter] 70 Respiratory Rate 16 Blood Pressure [Le ft Upper Arm] 141/88 H Pulse Oximetry 97 Oxygen Delivery Me thod Room Air Documenting provider has reviewed patient's vital signs: yes Course Course Hospital Course: Patient notes 1 hour of right calf pain earlier today. He is pain-free at this time. Obviously with history of unprovoked DVT of unknown etiology in do feel that we should proceed with ultrasound of bilateral lower extremities. Patient is in agreement. Vital Signs Vital signs: Initial Vital Signs Temperature 97.6 F 11/21/22 09:39 Temperature Source Temporal Artery Scan 11/21/22 09:39 Pulse Rate 70 11/21/22 09:39 Pulse Rhythm 11/21/22 09:39 Pulse Strength 3+ Normal 11/21/22 09:39 Respiratory Rate 16 11/21/22 09:39 Blood Pressure 141/88 H 11/21/22 09:39 Blood Pressure Mean 105 11/21/22 09:39 Blood Pressure Position Sitting 11/21/22 09:39 Pulse Oximetry 97 11/21/22 09:39 Oxygen Delivery Method 11/21/22 09:39 Vital Signs Temperature 97.6 F 11/21/22 09:39 Pulse Rate 70 11/21/22 09:39 Respiratory Rate 16 11/21/22 09:39 Blood Pressure 141/88 H 11/21/22 09:39 Pulse Oximetry 97 11/21/22 09:39 Oxygen Delivery Method 11/21/22 09:39 Temperature 97.6 F 11/21/22 09:39 Pulse Rate 70 11/21/22 09:39 Respiratory Rate 16 11/21/22 09:39 Blood Pressure 141/88 H 11/21/22 09:39 Pulse Oximetry 97 11/21/22 09:39 Oxygen Delivery Method 11/21/22 09:39 Medical Decision Making MDM Narrative Medical decision making narrative: 1. Right Cabrera cyst-8 cm in size. Patient is pain-free at this time. Would recommend follow-up with orthopedics if the pain returns. Given size may need to treat if patient has ongoing symptoms. 2. Disposition-home. Follow-up with orthopedics for increasing discomfort. Return to the emergency room as needed. Medical Records Medical records reviewed: Yes I reviewed the patient's medical records Imaging Data Venous US: Radiologist's impression: Sonographic imaging of the lower extremities demonstrates normal compressibility and color Doppler venous blood flow within the common femoral, deep femoral, and proximal greater saphenous veins. Within the thighs the femoral veins are patent and compressible. At a lower level the popliteal and posterior tibial veins also show normal compressibility and color Doppler venous blood flow. Large hypoechoic fluid collection measuring 8.5 x 1.4 centimeters in the posteromedial knee. This could be related to possible ruptured Cabrera`s IMPRESSION: ?No evidence of deep vein thrombosis within either the left or right lower extremity. Large 8.4 x 1.4 x 3 9 centimeter complex fluid collection in the medial posterior knee could be related to ruptured Cabrera`s cyst. Discharge Plan Discharge Clinical Impression: Cabrera cyst Patient Disposition: Home, Self-Care Condition: Unchanged Additional Instructions: Cabrera cyst noted in the right leg. This is more common and associated with arthritis in the knee. If this does cause continued pain orthopedic consult is recommended. However, most of the time this is asymptomatic. Return to the emergency room as needed. Prescriptions: No Action No Known Home Medications Follow Up/Referrals: Johana Busby PA [Primary Care Provider] - Stand Alone Forms: [facility] Info Instructions
--- NOTE | 2022-11-21 09:51 | CRLHL7_ITS ---
For Patients: As a result of the Century Cures Act, medical imaging exams and procedure reports are released immediately into your electronic medical record. You may view this report before your referring provider. If you have questions, please contact your health care provider. INDICATION: Right calf pain TECHNIQUE: A compression venous ultrasound exam was performed of both lower extremities using olivarez scale imaging, color Doppler and spectral Doppler analysis. FINDINGS: Sonographic imaging of the lower extremities demonstrates normal compressibility and color Doppler venous blood flow within the common femoral, deep femoral, and proximal greater saphenous veins. Within the thighs the femoral veins are patent and compressible. At a lower level the popliteal and posterior tibial veins also show normal compressibility and color Doppler venous blood flow. Large hypoechoic fluid collection measuring 8.5 x 1.4 centimeters in the posteromedial knee. This could be related to possible ruptured Cabrera`s IMPRESSION: No evidence of deep vein thrombosis within either the left or right lower extremity. Large 8.4 x 1.4 x 3 9 centimeter complex fluid collection in the medial posterior knee could be related to ruptured Cabrera`s cyst. Dictated by Luna Harris MD @ 11/21/2022 12:05:06 PM (Electronically Signed)
== END 2022-11-21 12:13 | disposition home or self-care (01) ==
PROVIDERS: Emergency Provider Family Medicine; PCP Physician Assistant
DX: M71.21 Synovial cyst of popliteal space [Baker], right knee (principal)
CPT/HCPCS: 93970; 99283